=== PATIENT | female | born 1935 | race Caucasian/White ===

== ENCOUNTER → 2016-06-30 13:23 | Outpatient (CLI) | payer MEDICARE, OTHER ==
[2014-04-09 10:35] VITALS: BMI 18.0
[~2016-06-30 13:23] MED LIST: ALEVE220 MG PO; CELEXA20 MG PO; COLACE100 MG PO; COUMADIN2 MG PO; COUMADIN5 MG PO; CRESTOR20 MG PO; DULCOLAX10 MG/SUPP RC; FLAGYL500 MG PO; FLORANEX / LACT1 TAB PO; K-DUR20 MEQ PO; KAPIDEX60 MG PO; LISINOPRIL10 MG PO; LOMOTIL TABLET1 TAB PO; MEGACE ES625 MG/5 M PO; MIRALAX17 GM PO; NICODERM C1 PATCH .1 TD; NORCO 10/325 TA1 TA1 PO; NORCO 5/325 TAB1 TA1 PO; NORVASC2.5 MG PO; PEPCID20 MG PO; PHOS-NAK PAC1 PACKET PO; PRILOSEC20 MG PO; PROAIR HFA8.5 GM INH; PROTONIX40 MG PO; PROVENTIL/2.5 MG/3 M INH; REMERON15 MG PO; SENOKOT-S TABLE1 TAB PO; SPIRIVA18 MCG INH; SYMBICORT 16010.2 GM INH; VENTOLIN HFA18 GM INH; VITAMIN B-121000 MC3 PO; VITAMIN D2000 UNIT PO; VOLTAREN100 GM; VOLTAREN100 GM TP; ZOFRAN4 MG PO
[2016-06-30 14:17] LABS: BASOPHILS 0.5 % (0.0-2.0); EOSINOPHILS 1.7 % (0-7); HEMATOCRIT 45.2 % (36.0-48.0); HEMOGLOBIN 14.6 g/dL (12-16); IMMATURE GRANULOCYTES 0.3 % (0-5); LYMPHOCYTES 11.7 % (15-50); MCH 32.5 pg (26.0-34.0); MCHC 32.3 g/dL (31.0-37.0); MCV 100.7 fL (80.0-100.0); MEAN PLATELET VOLUME 10.4 fL (7.4-10.4); MONOCYTES 13.8 % (2-11); RBC 4.49 10x6/uL (4.00-5.40); RDW 14.6 % (11.5-14.5); WBC 9.8 10x3/uL (4.8-10.8)
[2016-06-30 14:18] LABS: PLATELET COUNT 183 10x3/uL (130-400)
[2016-06-30 14:29] LABS: APPEARANCE CLEAR (CLEAR); COLOR YELLOW (YELLOW)
[2016-06-30 14:30] LABS: BACTERIA FEW /hpf (NONE SEEN); BILIRUBIN NEGATIVE (NEGATIVE); EPITHELIAL CELLS 0-5 /hpf (0-5); GLUCOSE NEGATIVE (NEGATIVE); KETONE NEGATIVE (NEGATIVE); LEUKOCYTE ESTERASE TRACE (NEGATIVE); NITRITE NEGATIVE (NEGATIVE); PROTEIN NEGATIVE (NEGATIVE); UROBILINOGEN NORMAL (NORMAL); WHITE CELLS - URINE 0-5 /hpf (0-5)
== END | disposition home or self-care (01) ==
LOC: D.LAB 13:23
PROVIDERS: Family Medicine
DX: T14.8 Other injury of unspecified body region (principal); W54.0XXA Bitten by dog, initial encounter; Y93.89 Activity, other specified; Y92.89 Other specified places as the place of occurrence of the external cause; R41.0 Disorientation, unspecified

== ENCOUNTER → 2016-08-19 12:07 | Outpatient (CLI) | payer MEDICARE, OTHER ==
[2014-04-09 10:35] VITALS: BMI 18.0
[2016-08-19 12:31] LABS: BASOPHILS 1.3 % (0-2); EOSINOPHILS 2.7 % (0-7); HEMATOCRIT 43.6 % (36.0-48.0); HEMOGLOBIN 14.2 g/dL (12-16); IMMATURE GRANULOCYTES 0.2 % (0-5); LYMPHOCYTES 18.7 % (15-50); MCH 32.6 pg (26.0-34.0); MCHC 32.6 g/dL (31.0-37.0); MCV 100.2 fL (80.0-100.0); MEAN PLATELET VOLUME 10.1 fL (7.4-10.4); MONOCYTES 15.4 % (2-11); NEUTROPHILS 61.7 % (40-80); PLATELET COUNT 168 10x3/uL (130-400); RBC 4.35 10x6/uL (4.00-5.40); RDW 14.6 % (11.5-14.5); WBC 6.4 10x3/uL (4.8-10.8)
== END | disposition home or self-care (01) ==
LOC: D.RAD 08:15
PROVIDERS: Family Medicine
DX: R04.2 Hemoptysis (principal)

== ENCOUNTER 2017-03-19 00:16 | Emergency (ER) | payer MEDICARE, OTHER ==
[2014-04-09 10:35] VITALS: BMI 18.0
[2017-03-19 01:12] LABS: BASOPHILS 0.3 % (0-2); EOSINOPHILS 1.4 % (0-7); HEMATOCRIT 45.7 % (36.0-48.0); IMMATURE GRANULOCYTES 0.5 % (0-5); LYMPHOCYTES 9.9 % (15-50); MCH 33.6 pg (26.0-34.0); MCHC 32.8 g/dL (31.0-37.0); MCV 102.5 fL (80.0-100.0); MEAN PLATELET VOLUME 10.1 fL (7.4-10.4); MONOCYTES 11.5 % (2-11); NEUTROPHILS 76.4 % (40-80); PLATELET COUNT 166 10x3/uL (130-400); RBC 4.46 10x6/uL (4.00-5.40); RDW 14.8 % (11.5-14.5); WBC 12.6 10x3/uL (4.8-10.8)
[2017-03-19 01:31] LABS: ALBUMIN 4.2 g/dL (3.4-5.0); ALKALINE PHOSPHATASE 128 U/L (46-116); ALT (SGPT) 30 U/L (10-68); CALC OSMOLALITY 277 mosm/kg (275-300); CALCIUM 9.3 mg/dL (8.5-10.1); CARBON DIOXIDE 29.6 mmol/L (21.0-32.0); CHLORIDE - SERUM 100 mmol/L (98-107); CREATININE - SERUM 0.8 mg/dL (0.6-1.3); GLUCOSE 114 mg/dL (74-106); POTASSIUM - SERUM 4.2 mmol/L (3.5-5.1); PROTEIN - SERUM 8.3 g/dL (6.4-8.2); SODIUM 138 mmol/L (136-145); UREA NITROGEN 14 mg/dL (7-18); eGFR NON AFRICAN AMERICAN 73 mL/min (90-120)
[2017-03-19 01:37] LABS: CREATINE KINASE 100 UL (21-215); PRO BNP 444 pg/mL (0-450); TROPONIN-I < 0.017 ng/mL (0.000-0.060)
== END 2017-03-19 01:55 | disposition home or self-care (01) ==
LOC: D.ER 00:16
PROVIDERS: Family Medicine
DX: J44.1 Chronic obstructive pulmonary disease with (acute) exacerbation (principal); R00.0 Tachycardia, unspecified

== ENCOUNTER 2017-04-07 13:43 | Emergency (ER) | payer MEDICARE, OTHER ==
[2014-04-09 10:35] VITALS: BMI 18.0
[2017-04-07 15:43] LABS: APPEARANCE HAZY (CLEAR); COLOR DK YELLOW (YELLOW); SPECIFIC GRAVITY 1.025 (1.005-1.020)
[2017-04-07 15:44] LABS: BILIRUBIN NEGATIVE (NEGATIVE); GLUCOSE NEGATIVE (NEGATIVE); KETONE NEGATIVE (NEGATIVE); NITRITE NEGATIVE (NEGATIVE); PROTEIN NEGATIVE (NEGATIVE); UROBILINOGEN NORMAL (NORMAL)
[2017-04-07 15:46] LABS: BACTERIA MODERATE /hpf (NONE SEEN); RED CELLS - URINE 0-5 /hpf (0-5)
[2017-04-07 15:53] LABS: BASOPHILS 0.5 % (0-2); EOSINOPHILS 3.2 % (0-7); HEMATOCRIT 40.1 % (36.0-48.0); HEMOGLOBIN 12.9 g/dL (12-16); IMMATURE GRANULOCYTES 1.1 % (0-5); LYMPHOCYTES 14.4 % (15-50); MCH 32.9 pg (26.0-34.0); MCHC 32.2 g/dL (31.0-37.0); MCV 102.3 fL (80.0-100.0); MEAN PLATELET VOLUME 10.3 fL (7.4-10.4); NEUTROPHILS 71.8 % (40-80); PLATELET COUNT 195 10x3/uL (130-400); RBC 3.92 10x6/uL (4.00-5.40); RDW 14.3 % (11.5-14.5); WBC 10.3 10x3/uL (4.8-10.8)
[2017-04-07 16:07] LABS: ALBUMIN 3.4 g/dL (3.4-5.0); ANION GAP 9.4 mmol/L (8-16); BILIRUBIN - TOTAL 0.34 mg/dL (0.2-1.3); CALCIUM 8.9 mg/dL (8.5-10.1); CARBON DIOXIDE 29.6 mmol/L (21.0-32.0); CREATININE - SERUM 0.9 mg/dL (0.6-1.3); PROTEIN - SERUM 7.1 g/dL (6.4-8.2)
== END 2017-04-07 16:32 | disposition home or self-care (01) ==
LOC: D.ER 13:43
PROVIDERS: Emergency Medicine; Physician Assistant Medical
DX: M51.36 Other intervertebral disc degeneration, lumbar region (principal); S39.012A Strain of muscle, fascia and tendon of lower back, initial encounter; W19.XXXA Unspecified fall, initial encounter; Y93.89 Activity, other specified; Y92.89 Other specified places as the place of occurrence of the external cause; N39.0 Urinary tract infection, site not specified; J44.9 Chronic obstructive pulmonary disease, unspecified; F17.200 Nicotine dependence, unspecified, uncomplicated

== ENCOUNTER 2017-08-20 12:19 | Emergency (ER) | payer MEDICARE, OTHER ==
[2014-04-09 10:35] VITALS: BMI 18.0
== END 2017-08-20 14:00 | disposition home or self-care (01) ==
LOC: D.ER 12:19
DX: S70.02XA Contusion of left hip, initial encounter (principal); W19.XXXA Unspecified fall, initial encounter; Y93.89 Activity, other specified; Y92.019 Unspecified place in single-family (private) house as the place of occurrence of the external cause; J44.9 Chronic obstructive pulmonary disease, unspecified

== ENCOUNTER 2017-08-25 13:18 | Inpatient (IN) | payer MEDICARE, OTHER ==
[~2017-08-25] VITALS: Ht 160 cm; Wt 35.4 kg
--- NOTE | ~2017-08-25 | HEMODYNAMI ---
PATIENT:TISH HANSON MEDICAL RECORD: [id number] : 37 LOCATION:D.MS Sue.2230 ADMISSION DATE: 08/25/17 Generatedon:09/06/201711:49 Patient name: TISH HANSON Patient #: [id number] SSN: DO B: 1935 Date of study: 09/06/2017 Page: Of Hemodynamic Procedure Report Patient Data Patient Demographics Procedure consent was obtained First Name: TISH Gender: Female Last Name: VALENTIN : 1935 Middle Initial: ROSELIA Age: 82 year(s) Patient #: [id number] Race: Unknown Additional ID: [id number] Contact details Address: [address] [place] [address] State: [place] City: [place] Zip code: [address] Admission Admission Data Admission Date: 08/25/2017 Admission Time: 18:50 Room #: D.2230 Procedure Procedure Types Cath Procedure Peripheral Cath Diagnostic Procedure Sacralplasty Each Additional Body Procedure Description Procedure Date Procedure Date: 09/06/2017 Procedure Start Time: 10:54 Procedure Staff Name Function Fabian Interiano MD Performing Physician Jossue Martinez RT Monitor Shanita Han RT Scrub Yecenia Trevizo RN Nurse Tiburcio Cruz MD Additional personnel Procedure Data Cath Procedure Fluoroscopy Diagnostic fluoroscopy Total fluoroscopy Time: 9.6 time: 9.6 min min Diagnostic fluoroscopy Total fluoroscopy dose: 213 dose: 213 mGy mGy Procedure Medications Medication Administration Route Dosage Rocephin I.V. 1 g Ancef (1Gm/50ml NS) I.V.P.B 1 g Lidocaine 1% added to field 20 Heparin Flush Bag added to field 1 bags (1000units/500ml NS) Oxygen etCO2 Nasal cannula 4 l/min Hemodynamics Rest Pre Cath Intra NCS Post Cath Vital Signs Time Heart Resp SPO2 etCO2 NIBP (mmHg) Rhythm Pain Sedation Rate (ipm) (%) (mmHg) Status Level (bpm) 10:28:35 78 19 92 12 170/72(129) NSR 0 (11) 9(A) , No pain 10:32:53 80 26 87 0 175/82(129) NSR 0 (11) 9(A) , No pain 10:37:19 79 26 94 13.5 189/81(132) NSR 0 (11) 9(A) , No pain 10:41:21 78 21 100 6 175/74(131) NSR 0 (11) 8(A) , No pain 10:45:19 80 23 100 3.7 160/72(134) NSR 0 (11) 8(A) , No pain 10:49:47 80 25 100 11.2 188/77(133) NSR 0 (11) 8(A) , No pain 10:53:44 78 21 100 12 171/75(130) NSR 0 (11) 8(A) , No pain 10:57:44 73 20 100 17.2 172/69(122) NSR 0 (11) 8(A) , No pain 11:01:40 76 20 100 15.7 167/77(132) NSR 0 (11) 8(A) , No pain 11:05:39 73 19 100 22.5 154/69(116) NSR 0 (11) 8(A) , No pain 11:09:39 72 18 100 19.5 150/65(108) NSR 0 (11) 8(A) , No pain 11:13:45 74 18 100 14.2 125/59(100) NSR 0 (11) 8(A) , No pain 11:17:42 75 17 100 18.7 124/63(95) NSR 0 (11) 8(A) , No pain 11:21:44 75 19 100 13.5 131/56(96) NSR 0 (11) 8(A) , No pain 11:25:46 79 17 100 15.7 120/57(94) NSR 0 (11) 8(A) , No pain 11:29:45 78 19 100 10.5 122/57(91) NSR 0 (11) 8(A) , No pain 11:33:47 78 19 100 6.7 120/57(88) NSR 0 (11) 8(A) , No pain 11:37:49 80 17 100 14.2 123/58(95) NSR 0 (11) 8(A) , No pain 11:42:20 80 18 14.2 154/71(109) NSR 0 (11) 8(A) , No pain 11:46:47 81 20 7.5 185/82(140) NSR 0 (11) 8(A) , No pain Medications Time Medication Route Dose Verified Delivered Reason Notes Effec tiveness by by 10:28:55 Oxygen etCO2 4 Fabian Keene Per Nasal l/min Jaydon Trevizo RN protocol cannula 10:47:06 Rocephin I.V. 1 g Fabian Keene per drug Jaydon Trevizo RN protocol 11:03:11 Ancef (1Gm/50ml I.V.P.B 1 g Fabian Keene Per NS) Jaydon Trevizo RN protocol 11:03:23 Lidocaine 1% added 20ml Fabian Peralta Per to vial Jaydon wilkinson MD, MD 11:03:35 Heparin Flush added 1 Fabian Peralta Per Bag to bags Jaydon otero (1000units/500ml field MD MD HAYNES) Procedure Log Time Note 10:09:31 Jossue Martinez RT (R) (CV) sent for patient. Start room use. 10:09:38 Time tracking: Regular hours (M-F 7:00 - 5:00) 10:09:56 Plan of Care:Hemodynamics will remain stable., Cardiac rhythm will remain stable., Comfort level will be maintained., Respiratory function will remain adequate., Patient/ family verbilizes understanding of procedure., Procedure tolerated without complication., Recovers from procedure without complications.. 10:10:37 Patient received from Outpatients to IR Alert and oriented. Tansferred to table in Prone position. 10:10:40 Warm blankets applied, and fred hugger turned on for patient comfort. 10:10:41 Correct patient and procedure confirmed by team. 10:10:43 Signed procedure consent form obtained from patient. 10:10:46 Full Disclosure recording started 10:10:48 - 10:11:10 SEE ANESTHESIA NOTE FOR PRE PROCEDURE TIVA 10:11:11 - 10:27:52 ECG and BP/O2 sat monitors applied to patient. 10:27:53 Vital chart was started 10:28:55 Oxygen 4 l/min etCO2 Nasal cannula was administered by Yecenia Trevizo RN; Per protocol; 10:47:06 Rocephin 1 g I.V. was administered by Yecenia Trevizo RN; per drug protocol; 10:47:23 Lumbar area was prepped with chlora-prep and draped in sterile fashion 10:47:25 Alarms reviewed by R. N. 10:47:26 Sharps counted by scrub and verified by R.N. 10:47:30 Physician arrived 10:47:31 --------ALL STOP TIME OUT------ 10:47:31 Final Timeout: patient, procedure, and site verified with staff and physician. All members of the team are in agreement. 10:47:35 Lumbar site verified by team. 10:47:41 Sedation plan: TIVA Medication:Propofol 10:48:06 Use device set IR Diagnostic 10:48:08 Sterile Angiographic Pack opened to sterile field. 10:48:10 Tegaderm 4 x 4 (1626W) opened to sterile field. 10:48:11 Bag Decanter (2002S) opened to sterile field. 10:54:45 Procedure started. 10:54:59 Local anesthetic to Lumbar area with Lidocaine 1% by Fabian Interiano MD.INITIAL ACCESS ONLY 10:55:01 Avamax CEMENT BONE VERTEBROPLASTY kit opened to sterile field. 10:55:02 Avamax 13 G VERTEBROPLASTY Needle opened to sterile field. 10:55:03 Avamax 13 G VERTEBROPLASTY Needle opened to sterile field. 11:02:44 HAVING TO USE INDEPENDENT OXYGEN SATURATION MONITOR 11:03:11 Ancef (1Gm/50ml NS) 1 g I.V.P.B was administered by Yecenia Trevizo RN ; Per protocol; 11:03:23 Lidocaine 1% 20ml vial added to field was administered by Fabian irving MD; Per protocol; 11:03:35 Heparin Flush Bag (1000units/500ml NS) 1 bags added to field was administered by Fabian Interiano MD; Per protocol; 11:41:49 Procedure ended.(Physican Out) 11:43:50 Fluoroscopy time 09.60 minutes. 11:43:54 Fluoroscopy dose: 213 mGy 11:43:54 Flurop Dose total: 213 11:43:57 Sharps counted by scrub and verified by R.N. 11:43:59 Insertion/operative site no bleeding no hematoma. 11:44:10 Post-op/insertion site Right Lumbar area dressed using a 4 x 4 and Tegaderm. 11:44:17 Post Lumbar area:stable 11:44:22 Post procedure instruction explained to patient.Patient verbalizes understanding. 11:44:23 Procedure and supply charges have been captured, reviewed, submitted an d are correct. 11:48:53 SEE ANESTHESIA NOTE FOR POST PROCEDURE TIVA 11:48:56 Report given to Outpatients. 11:49:00 Patient transfered to Outpatients with Stretcher. 11:49:33 Vital chart was stopped Device Usage Item Name Manufacture Quantity Catalog Hospital Part Current Minim al Lot# / Number Charge Number Stock Stock Serial# Code Sterile Cardinal 1 [id number] 5 Angiographic Health Pack Tegaderm 4 x 4 3M 1 [id number] 5 (1626W) Bag Decanter Microtek 1 [id number] 5 (2001S) [employer] Avamax CEMENT CareFusion 1 [id number] 5 BONE VERTEBROPLASTY kit Avamax 13 G CareFusion 2 [id number] 5 VERTEBROPLASTY Needle Signature Audit [place] Stage Time Signature Unsigned Intra-Procedure 09/06/2017 Jossue 11:49:30 AM Michelle RT (R) (CV) Signatures Monitor : Jossue Signature : Michelle RT Date : Time : [facility] [address] [place] [address]
[2017-08-25 14:04] LABS: APPEARANCE CLEAR (CLEAR); BILIRUBIN NEGATIVE (NEGATIVE); COLOR YELLOW (YELLOW); GLUCOSE NEGATIVE (NEGATIVE); KETONE NEGATIVE (NEGATIVE); NITRITE NEGATIVE (NEGATIVE); PROTEIN NEGATIVE (NEGATIVE); UROBILINOGEN NORMAL (NORMAL)
[2017-08-25 14:06] LABS: BACTERIA MODERATE /hpf (NONE SEEN); HYALINE CAST 0-5 /lpf (NONE SEEN); MUCUS <1+ /lpf (NONE SEEN); RED CELLS - URINE 0-5 /hpf (0-5)
[2017-08-25 15:55] LABS: BASOPHILS 0.4 % (0-2); EOSINOPHILS 1.6 % (0-7); HEMATOCRIT 36.8 % (36.0-48.0); HEMOGLOBIN 12.1 g/dL (12-16); LYMPHOCYTES 8.5 % (15-50); MCH 32.6 pg (26.0-34.0); MCHC 32.9 g/dL (31.0-37.0); MCV 99.2 fL (80.0-100.0); MEAN PLATELET VOLUME 10.1 fL (7.4-10.4); MONOCYTES 5.9 % (2-11); NEUTROPHILS 82.6 % (40-80); PLATELET COUNT 146 10x3/uL (130-400); RBC 3.71 10x6/uL (4.00-5.40); RDW 14.2 % (11.5-14.5); WBC 18.6 10x3/uL (4.8-10.8)
[2017-08-25 16:04] LABS: INR 1.08 (0.85-1.17); PROTIME 13.6 SECONDS (11.6-15.0)
[2017-08-25 16:20] LABS: ALBUMIN 3.4 g/dL (3.4-5.0); ANION GAP 10.5 mmol/L (8-16); BILIRUBIN - TOTAL 1.38 mg/dL (0.2-1.3); CALCIUM 8.6 mg/dL (8.5-10.1); CREATININE - SERUM 0.9 mg/dL (0.6-1.3); POTASSIUM - SERUM 4.5 mmol/L (3.5-5.1); PROTEIN - SERUM 7.1 g/dL (6.4-8.2)
[2017-08-26 00:17] VITALS: BP 114/42; BMI 13.8
[2017-08-26 05:50] LABS: EOSINOPHILS 3.4 % (0-7); HEMATOCRIT 32.8 % (36.0-48.0); HEMOGLOBIN 10.6 g/dL (12-16); IMMATURE GRANULOCYTES 1.2 % (0-5); LYMPHOCYTES 8.1 % (15-50); MCH 32.2 pg (26.0-34.0); MCHC 32.3 g/dL (31.0-37.0); MCV 99.7 fL (80.0-100.0); MEAN PLATELET VOLUME 11.2 fL (7.4-10.4); MONOCYTES 10.9 % (2-11); NEUTROPHILS 75.4 % (40-80); PLATELET COUNT 150 10x3/uL (130-400); RBC 3.29 10x6/uL (4.00-5.40); RDW 14.3 % (11.5-14.5)
[2017-08-26 06:30] LABS: ALBUMIN 2.7 g/dL (3.4-5.0); ANION GAP 13.3 mmol/L (8-16); BILIRUBIN - TOTAL 0.68 mg/dL (0.2-1.3); CALCIUM 8.5 mg/dL (8.5-10.1); CARBON DIOXIDE 28.8 mmol/L (21.0-32.0); POTASSIUM - SERUM 5.1 mmol/L (3.5-5.1); PROTEIN - SERUM 5.9 g/dL (6.4-8.2)
[2017-08-26 15:13] VITALS: Ht 160 cm; Wt 35.4 kg
[2017-08-28 06:19] LABS: HEMATOCRIT 31.5 % (36.0-48.0); HEMOGLOBIN 10.1 g/dL (12-16); MCHC 32.1 g/dL (31.0-37.0); MCV 99.7 fL (80.0-100.0); MEAN PLATELET VOLUME 10.8 fL (7.4-10.4); RBC 3.16 10x6/uL (4.00-5.40); RDW 13.9 % (11.5-14.5); WBC 13.2 10x3/uL (4.8-10.8)
[2017-08-28 06:38] LABS: ANION GAP 15.7 mmol/L (8-16); CALCIUM 8.7 mg/dL (8.5-10.1); CARBON DIOXIDE 28.9 mmol/L (21.0-32.0); CREATININE - SERUM 0.9 mg/dL (0.6-1.3); POTASSIUM - SERUM 4.6 mmol/L (3.5-5.1)
[2017-08-28 12:49] LABS: BASOPHILS 0.3 % (0-2); EOSINOPHILS 1.7 % (0-7); HEMATOCRIT 30.8 % (36.0-48.0); HEMOGLOBIN 10.2 g/dL (12-16); IMMATURE GRANULOCYTES 0.9 % (0-5); LYMPHOCYTES 15.6 % (15-50); MCHC 33.1 g/dL (31.0-37.0); MCV 99.7 fL (80.0-100.0); MONOCYTES 7.6 % (2-11); NEUTROPHILS 73.9 % (40-80); PLATELET COUNT 176 10x3/uL (130-400); RBC 3.09 10x6/uL (4.00-5.40); WBC 12.7 10x3/uL (4.8-10.8)
[2017-08-29 05:55] LABS: ANION GAP 16.6 mmol/L (8-16); CALCIUM 8.8 mg/dL (8.5-10.1); CARBON DIOXIDE 26.8 mmol/L (21.0-32.0); CREATININE - SERUM 0.9 mg/dL (0.6-1.3); POTASSIUM - SERUM 4.4 mmol/L (3.5-5.1)
[2017-08-29 12:33] VITALS: BP 170/60
[2017-08-29 17:17] VITALS: BP 165/57
[2017-08-29 20:41] VITALS: BP 174/60
[2017-08-30 00:32] VITALS: BP 193/76
[2017-08-30 04:42] VITALS: BP 194/77
[2017-08-30 08:21] VITALS: BP 100/70
[2017-08-30 13:11] VITALS: BP 118/64
[2017-08-30 16:19] VITALS: BP 106/60
[2017-08-30 21:01] VITALS: BP 178/76
[2017-08-31 01:08] VITALS: BP 141/85
[2017-08-31 04:00] VITALS: BP 126/69
[2017-08-31 08:08] VITALS: BP 132/77
[2017-08-31 12:41] VITALS: BP 157/73
[2017-08-31 15:27] VITALS: BP 175/69
[2017-08-31 20:46] VITALS: BP 187/67
[2017-09-01 00:11] VITALS: BP 174/71
[2017-09-01 04:07] VITALS: BP 184/74
[2017-09-01 08:01] VITALS: BP 180/80
[2017-09-01 12:33] VITALS: BP 117/69
[2017-09-01 15:57] VITALS: BP 140/44
[2017-09-01 21:20] VITALS: BP 171/67
[2017-09-02 00:38] VITALS: BP 174/74
[2017-09-02 05:04] VITALS: BP 184/84
[2017-09-02 08:43] VITALS: BP 183/73
[2017-09-02 13:00] VITALS: BP 156/98
[2017-09-02 16:08] VITALS: BP 147/96
[2017-09-02 20:00] VITALS: BP 125/78
[2017-09-03] VITALS: BP 134/59
[2017-09-03 04:00] VITALS: BP 129/68
[2017-09-03 10:15] VITALS: BP 189/57
[2017-09-03 12:17] VITALS: BP 137/62
[2017-09-03 17:06] VITALS: BP 193/79
[2017-09-03 20:49] VITALS: BP 199/80
[2017-09-04 00:52] VITALS: BP 188/73
[2017-09-04 04:17] VITALS: BP 164/46
[2017-09-04 09:09] VITALS: BP 113/77
[2017-09-04 16:30] LABS: APPEARANCE CLEAR (CLEAR); BILIRUBIN NEGATIVE (NEGATIVE); COLOR YELLOW (YELLOW); GLUCOSE NEGATIVE (NEGATIVE); KETONE NEGATIVE (NEGATIVE); NITRITE NEGATIVE (NEGATIVE); PH 6.5 (5.0-6.0); PROTEIN TRACE mg/dL (NEGATIVE); UROBILINOGEN NORMAL (NORMAL)
[2017-09-04 16:37] LABS: BACTERIA FEW /hpf (NONE SEEN); EPITHELIAL CELLS OCC /hpf (0-5); HYALINE CAST OCC /lpf (NONE SEEN); MUCUS <1+ /lpf (NONE SEEN); RED CELLS - URINE RARE /hpf (0-5); WHITE CELLS - URINE OCC /hpf (0-5)
[2017-09-04 19:34] VITALS: BP 180/52
[2017-09-05 04:05] VITALS: BP 177/68
[2017-09-05 05:51] LABS: BASOPHILS 0.5 % (0-2); EOSINOPHILS 3.5 % (0-7); HEMATOCRIT 26.1 % (36.0-48.0); HEMOGLOBIN 8.7 g/dL (12-16); IMMATURE GRANULOCYTES 1.4 % (0-5); LYMPHOCYTES 12.2 % (15-50); MCH 32.3 pg (26.0-34.0); MCHC 33.3 g/dL (31.0-37.0); MEAN PLATELET VOLUME 10.3 fL (7.4-10.4); MONOCYTES 10.9 % (2-11); NEUTROPHILS 71.5 % (40-80); PLATELET COUNT 195 10x3/uL (130-400); RBC 2.69 10x6/uL (4.00-5.40); RDW 14.6 % (11.5-14.5); WBC 8.8 10x3/uL (4.8-10.8)
[2017-09-05 06:12] LABS: CALCIUM 7.8 mg/dL (8.5-10.1); CHLORIDE - SERUM 105 mmol/L (98-107); CREATININE - SERUM 0.6 mg/dL (0.6-1.3); SODIUM 142 mmol/L (136-145); UREA NITROGEN 7 mg/dL (7-18); eGFR NON AFRICAN AMERICAN > 90 mL/min (90-120)
[2017-09-05 06:30] LABS: CALC OSMOLALITY 278 mosm/kg (275-300); GLUCOSE 67 mg/dL (74-106)
[2017-09-05 06:52] LABS: INR 1.31 (0.85-1.17); PROTIME 15.8 SECONDS (11.6-15.0)
[2017-09-05 06:53] LABS: APTT 33.4 SECONDS (22.8-39.4)
[2017-09-05 08:25] VITALS: BP 159/81
[2017-09-05 13:22] VITALS: BP 174/56
[2017-09-05 15:47] LABS: APPEARANCE CLEAR (CLEAR); BILIRUBIN NEGATIVE (NEGATIVE); COLOR YELLOW (YELLOW); GLUCOSE NEGATIVE (NEGATIVE); KETONE MODERATE mg/dL (NEGATIVE); NITRITE NEGATIVE (NEGATIVE); PROTEIN TRACE mg/dL (NEGATIVE); UROBILINOGEN NORMAL (NORMAL)
[2017-09-05 16:55] VITALS: BP 126/57
[2017-09-05 20:00] VITALS: BP 165/70
[2017-09-06 00:18] VITALS: BP 165/77
[2017-09-06 04:10] VITALS: BP 171/73
[2017-09-06 06:12] LABS: INR 1.39 (0.85-1.17); PROTIME 16.6 SECONDS (11.6-15.0)
[2017-09-06 06:13] LABS: APTT 33.8 SECONDS (22.8-39.4)
[2017-09-06 06:16] LABS: BASOPHILS 0.8 % (0-2); EOSINOPHILS 3.3 % (0-7); HEMATOCRIT 27.3 % (36.0-48.0); HEMOGLOBIN 8.9 g/dL (12-16); IMMATURE GRANULOCYTES 1.8 % (0-5); LYMPHOCYTES 12.2 % (15-50); MCH 32.2 pg (26.0-34.0); MCHC 32.6 g/dL (31.0-37.0); MCV 98.9 fL (80.0-100.0); MEAN PLATELET VOLUME 10.7 fL (7.4-10.4); MONOCYTES 10.4 % (2-11); NEUTROPHILS 71.5 % (40-80); PLATELET COUNT 220 10x3/uL (130-400); RBC 2.76 10x6/uL (4.00-5.40); RDW 14.8 % (11.5-14.5); WBC 7.9 10x3/uL (4.8-10.8)
[2017-09-06 06:33] LABS: CALCIUM 7.7 mg/dL (8.5-10.1); CARBON DIOXIDE 25.6 mmol/L (21.0-32.0); CHLORIDE - SERUM 106 mmol/L (98-107); CREATININE - SERUM 0.7 mg/dL (0.6-1.3); POTASSIUM - SERUM 3.5 mmol/L (3.5-5.1); SODIUM 143 mmol/L (136-145); UREA NITROGEN 8 mg/dL (7-18); eGFR NON AFRICAN AMERICAN 85 mL/min (90-120)
[2017-09-06 06:34] LABS: CALC OSMOLALITY 280 mosm/kg (275-300); GLUCOSE 54 mg/dL (74-106)
[2017-09-06 15:57] VITALS: BP 197/75
[2017-09-06 18:22] VITALS: BP 192/80
[2017-09-06 20:00] VITALS: BP 188/82
[2017-09-07] VITALS (7 sets, daily range): BP systolic 116–191; BP diastolic 65–81
[2017-09-07 13:38] LABS: CALC OSMOLALITY 277 mosm/kg (275-300); CALCIUM 8.7 mg/dL (8.5-10.1); CARBON DIOXIDE 28.2 mmol/L (21.0-32.0); CHLORIDE - SERUM 106 mmol/L (98-107); CREATININE - SERUM 0.6 mg/dL (0.6-1.3); POTASSIUM - SERUM 3.7 mmol/L (3.5-5.1); SODIUM 141 mmol/L (136-145); UREA NITROGEN 8 mg/dL (7-18); eGFR NON AFRICAN AMERICAN > 90 mL/min (90-120)
[2017-09-07 13:44] LABS: GLUCOSE 84 mg/dL (74-106)
[2017-09-08 03:45] VITALS: BP 148/66
[2017-09-08 08:52] VITALS: BP 153/78
[2017-09-08 12:22] VITALS: BP 130/69
[2017-09-08 15:51] VITALS: BP 104/59
[2017-09-08 20:00] VITALS: BP 141/73
[2017-09-09 01:20] VITALS: BP 166/75
[2017-09-09 05:27] VITALS: BP 172/81
[2017-09-09 08:58] VITALS: BP 150/54
[2017-09-09 12:45] VITALS: BP 163/69
[2017-09-09 16:46] VITALS: BP 146/77
[2017-09-09 20:00] VITALS: BP 176/62
[2017-09-10] VITALS: BP 166/70
[2017-09-10 04:00] VITALS: BP 180/67
[2017-09-10 06:40] LABS: BASOPHILS 0.2 % (0-2); EOSINOPHILS 1.3 % (0-7); HEMATOCRIT 27.2 % (36.0-48.0); HEMOGLOBIN 8.9 g/dL (12-16); IMMATURE GRANULOCYTES 0.8 % (0-5); LYMPHOCYTES 6.2 % (15-50); MCH 31.9 pg (26.0-34.0); MCHC 32.7 g/dL (31.0-37.0); MCV 97.5 fL (80.0-100.0); MEAN PLATELET VOLUME 10.6 fL (7.4-10.4); MONOCYTES 10.9 % (2-11); NEUTROPHILS 80.6 % (40-80); RBC 2.79 10x6/uL (4.00-5.40); RDW 15.1 % (11.5-14.5); WBC 12.5 10x3/uL (4.8-10.8)
[2017-09-10 06:48] LABS: CALC OSMOLALITY 276 mosm/kg (275-300); CHLORIDE - SERUM 106 mmol/L (98-107); CREATININE - SERUM 0.5 mg/dL (0.6-1.3); POTASSIUM - SERUM 3.5 mmol/L (3.5-5.1); SODIUM 141 mmol/L (136-145); UREA NITROGEN 6 mg/dL (7-18); eGFR NON AFRICAN AMERICAN > 90 mL/min (90-120)
[2017-09-10 06:51] LABS: GLUCOSE 70 mg/dL (74-106)
[2017-09-10 06:58] LABS: PLATELET COUNT 275 10x3/uL (130-400)
[2017-09-10] MEDS ORDERED: NORVASC10 MG PO (07:20)
[2017-09-10] MEDS ORDERED: ULTRAM50 MG PO (07:21)
[2017-09-10] MEDS ORDERED: LISINOPRIL10 MG PO (07:21)
[2017-09-10] MEDS ORDERED: PULMICORT0.25 MG/1 UPD (07:22)
[2017-09-10] MEDS ORDERED: PROTONIX40 MG PO (07:23)
[2017-09-10] MEDS ORDERED: ATROVENT 0.02%2.5 ML UPD (07:24)
[2017-09-10] MEDS ORDERED: ATIVAN0.5 MG PO (07:40)
[2017-09-10 08:45] VITALS: BP 188/74
== END 2017-09-10 18:03 | DRG 516 ==
LOC: D.ER 13:18 → D.MS 18:50 → D.EDHOLD 18:50 → D.MS 19:06
PROVIDERS: Family Medicine; General Practice; Nurse Practitioner Family; Orthopaedic Surgery; Radiology Diagnostic Radiology; Specialist
PROC: 0QU13JZ Supplement Sacrum with Synthetic Substitute, Percutaneous Approach (ICD-10-PCS; principal; 2017-09-06 10:47)
DX: S32.19XA Other fracture of sacrum, initial encounter for closed fracture (principal); N39.0 Urinary tract infection, site not specified; W19.XXXA Unspecified fall, initial encounter; J43.9 Emphysema, unspecified; F32.9 Major depressive disorder, single episode, unspecified; M85.80 Other specified disorders of bone density and structure, unspecified site; M47.9 Spondylosis, unspecified; R54 Age-related physical debility; M81.0 Age-related osteoporosis without current pathological fracture; K59.00 Constipation, unspecified; R00.0 Tachycardia, unspecified; R41.0 Disorientation, unspecified; F03.90 Unspecified dementia, unspecified severity, without behavioral disturbance, psychotic disturbance, mood disturbance, and anxiety

== ENCOUNTER 2017-09-20 10:01 | Inpatient (IN) | payer MEDICARE, OTHER ==
[~2017-09-20] VITALS: Ht 160 cm; Wt 33.5 kg
[~2017-09-20 10:01] MED LIST changes: +ATIVAN0.5 MG PO; +ATROVENT 0.02%2.5 ML UPD; +NORVASC10 MG PO; +PULMICORT0.25 MG/1 UPD; +ULTRAM50 MG PO
[2017-09-20 11:02] LABS: BASOPHILS 0.3 % (0-2); EOSINOPHILS 0.5 % (0-7); HEMATOCRIT 30.3 % (36.0-48.0); HEMOGLOBIN 9.6 g/dL (12-16); IMMATURE GRANULOCYTES 0.6 % (0-5); MCHC 31.7 g/dL (31.0-37.0); MCV 104.1 fL (80.0-100.0); MEAN PLATELET VOLUME 9.9 fL (7.4-10.4); MONOCYTES 6.7 % (2-11); NEUTROPHILS 80.9 % (40-80); RBC 2.91 10x6/uL (4.00-5.40); RDW 16.4 % (11.5-14.5)
[2017-09-20 11:21] LABS: PLATELET COUNT 185 10x3/uL (130-400)
[2017-09-20 11:31] LABS: ALBUMIN 3.2 g/dL (3.4-5.0); ALKALINE PHOSPHATASE 144 U/L (46-116); ALT (SGPT) 18 U/L (10-68); BILIRUBIN - TOTAL 0.83 mg/dL (0.2-1.3); CALC OSMOLALITY 289 mosm/kg (275-300); CALCIUM 8.4 mg/dL (8.5-10.1); CARBON DIOXIDE 32.6 mmol/L (21.0-32.0); CHLORIDE - SERUM 108 mmol/L (98-107); CREATININE - SERUM 1.1 mg/dL (0.6-1.3); POTASSIUM - SERUM 3.5 mmol/L (3.5-5.1); PROTEIN - SERUM 6.4 g/dL (6.4-8.2); SODIUM 145 mmol/L (136-145); UREA NITROGEN 15 mg/dL (7-18); eGFR NON AFRICAN AMERICAN 50 mL/min (90-120)
[2017-09-20 11:34] LABS: GLUCOSE 106 mg/dL (74-106)
[2017-09-20 11:41] LABS: CKMB 2.9 U/L (0.0-3.6)
[2017-09-20 11:42] LABS: TROPONIN-I < 0.017 ng/mL (0.000-0.060)
[2017-09-20 13:00] VITALS: BP 150/63
[2017-09-20 14:13] LABS: APPEARANCE CLEAR (CLEAR); COLOR YELLOW (YELLOW)
[2017-09-20 14:14] LABS: BACTERIA MANY /hpf (NONE SEEN); BILIRUBIN NEGATIVE (NEGATIVE); GLUCOSE NEGATIVE (NEGATIVE); KETONE NEGATIVE (NEGATIVE); NITRITE NEGATIVE (NEGATIVE); UROBILINOGEN NORMAL (NORMAL); WHITE CELLS - URINE RARE /hpf (0-5)
[2017-09-20 14:15] LABS: EPITHELIAL CELLS RARE /hpf (0-5); PROTEIN TRACE mg/dL (NEGATIVE)
[2017-09-20 15:00] VITALS: BP 144/57
[2017-09-20 17:00] VITALS: BP 143/55
[2017-09-20 20:57] VITALS: BP 159/58; BMI 13.1
[2017-09-21 04:00] VITALS: BP 155/58
[2017-09-21 05:22] LABS: BASOPHILS 0.2 % (0-2); EOSINOPHILS 0 % (0-7); HEMATOCRIT 28.7 % (36.0-48.0); HEMOGLOBIN 9.1 g/dL (12-16); IMMATURE GRANULOCYTES 0.9 % (0-5); LYMPHOCYTES 3.4 % (15-50); MCHC 31.7 g/dL (31.0-37.0); MEAN PLATELET VOLUME 10.3 fL (7.4-10.4); MONOCYTES 1.4 % (2-11); NEUTROPHILS 94.1 % (40-80); PLATELET COUNT 201 10x3/uL (130-400); RBC 2.76 10x6/uL (4.00-5.40); RDW 16.3 % (11.5-14.5)
[2017-09-21 05:27] LABS: WBC 5.6 10x3/uL (4.8-10.8)
[2017-09-21 05:45] LABS: ALBUMIN 2.8 g/dL (3.4-5.0); ANION GAP 8.9 mmol/L (8-16); BILIRUBIN - TOTAL 0.64 mg/dL (0.2-1.3); CALCIUM 8.2 mg/dL (8.5-10.1); CARBON DIOXIDE 31.4 mmol/L (21.0-32.0); PROTEIN - SERUM 6.3 g/dL (6.4-8.2)
[2017-09-21 05:46] LABS: CREATININE - SERUM 0.8 mg/dL (0.6-1.3); POTASSIUM - SERUM 4.3 mmol/L (3.5-5.1)
[2017-09-21 08:56] VITALS: BP 165/60
[2017-09-21 12:25] VITALS: Ht 160 cm; Wt 33.5 kg
[2017-09-21 12:51] VITALS: BP 169/59
[2017-09-21 16:27] VITALS: BP 147/64
[2017-09-21 20:49] VITALS: BP 133/60
[2017-09-22] VITALS (7 sets, daily range): BP systolic 122–135; BP diastolic 37–93
[2017-09-22 05:34] LABS: BASOPHILS 0.1 % (0-2); EOSINOPHILS 0 % (0-7); HEMATOCRIT 31.1 % (36.0-48.0); HEMOGLOBIN 10.1 g/dL (12-16); IMMATURE GRANULOCYTES 0.4 % (0-5); LYMPHOCYTES 3.9 % (15-50); MCH 33.2 pg (26.0-34.0); MCHC 32.5 g/dL (31.0-37.0); MCV 102.3 fL (80.0-100.0); MEAN PLATELET VOLUME 10.7 fL (7.4-10.4); MONOCYTES 3.1 % (2-11); NEUTROPHILS 92.5 % (40-80); PLATELET COUNT 194 10x3/uL (130-400); RBC 3.04 10x6/uL (4.00-5.40); RDW 16.2 % (11.5-14.5); WBC 10.6 10x3/uL (4.8-10.8)
[2017-09-22 06:04] LABS: ALBUMIN 3.1 g/dL (3.4-5.0); ALKALINE PHOSPHATASE 132 U/L (46-116); ALT (SGPT) 17 U/L (10-68); CALC OSMOLALITY 288 mosm/kg (275-300); CALCIUM 8.5 mg/dL (8.5-10.1); CARBON DIOXIDE 30.4 mmol/L (21.0-32.0); CHLORIDE - SERUM 106 mmol/L (98-107); CREATININE - SERUM 0.7 mg/dL (0.6-1.3); GLUCOSE 142 mg/dL (74-106); POTASSIUM - SERUM 3.7 mmol/L (3.5-5.1); PROTEIN - SERUM 6.7 g/dL (6.4-8.2); SODIUM 143 mmol/L (136-145); UREA NITROGEN 17 mg/dL (7-18); eGFR NON AFRICAN AMERICAN 85 mL/min (90-120)
[2017-09-23 04:07] VITALS: BP 131/53
[2017-09-23 05:23] LABS: BASOPHILS 0.1 % (0-2); EOSINOPHILS 0 % (0-7); HEMATOCRIT 26.1 % (36.0-48.0); HEMOGLOBIN 8.6 g/dL (12-16); IMMATURE GRANULOCYTES 0.5 % (0-5); LYMPHOCYTES 2.9 % (15-50); MCH 34.1 pg (26.0-34.0); MCV 103.6 fL (80.0-100.0); MEAN PLATELET VOLUME 10.3 fL (7.4-10.4); MONOCYTES 3.1 % (2-11); NEUTROPHILS 93.4 % (40-80); PLATELET COUNT 181 10x3/uL (130-400); RBC 2.52 10x6/uL (4.00-5.40); RDW 16.2 % (11.5-14.5); WBC 9.8 10x3/uL (4.8-10.8)
[2017-09-23 05:53] LABS: ALBUMIN 2.8 g/dL (3.4-5.0); ALKALINE PHOSPHATASE 104 U/L (46-116); ALT (SGPT) 15 U/L (10-68); BILIRUBIN - TOTAL 0.42 mg/dL (0.2-1.3); CALC OSMOLALITY 291 mosm/kg (275-300); CARBON DIOXIDE 30.2 mmol/L (21.0-32.0); CHLORIDE - SERUM 109 mmol/L (98-107); CREATININE - SERUM 0.7 mg/dL (0.6-1.3); GLUCOSE 141 mg/dL (74-106); POTASSIUM - SERUM 3.8 mmol/L (3.5-5.1); PROTEIN - SERUM 5.8 g/dL (6.4-8.2); SODIUM 144 mmol/L (136-145); UREA NITROGEN 20 mg/dL (7-18); eGFR NON AFRICAN AMERICAN 85 mL/min (90-120)
[2017-09-23 08:10] VITALS: BP 135/62
[2017-09-23 12:34] VITALS: BP 144/63
[2017-09-23 16:15] VITALS: BP 136/52
[2017-09-23 17:54] VITALS: BP 134/73
[2017-09-23 20:00] VITALS: BP 116/65
[2017-09-24] VITALS: BP 129/54
[2017-09-24 04:00] VITALS: BP 131/79; BP 145/63
[2017-09-24 06:43] LABS: BASOPHILS 0 % (0-2); EOSINOPHILS 0 % (0-7); HEMATOCRIT 25.8 % (36.0-48.0); HEMOGLOBIN 8.4 g/dL (12-16); IMMATURE GRANULOCYTES 0.9 % (0-5); LYMPHOCYTES 4.7 % (15-50); MCH 32.8 pg (26.0-34.0); MCHC 32.6 g/dL (31.0-37.0); MEAN PLATELET VOLUME 10.5 fL (7.4-10.4); MONOCYTES 4.5 % (2-11); NEUTROPHILS 89.9 % (40-80); PLATELET COUNT 162 10x3/uL (130-400); RBC 2.56 10x6/uL (4.00-5.40); RDW 15.9 % (11.5-14.5)
[2017-09-24 06:44] LABS: MCV 100.8 fL (80.0-100.0); WBC 6.7 10x3/uL (4.8-10.8)
[2017-09-24 07:08] LABS: ALBUMIN 2.6 g/dL (3.4-5.0); ALKALINE PHOSPHATASE 96 U/L (46-116); BILIRUBIN - TOTAL 0.43 mg/dL (0.2-1.3); CALC OSMOLALITY 296 mosm/kg (275-300); CALCIUM 7.8 mg/dL (8.5-10.1); CARBON DIOXIDE 29.5 mmol/L (21.0-32.0); CHLORIDE - SERUM 110 mmol/L (98-107); CREATININE - SERUM 0.7 mg/dL (0.6-1.3); GLUCOSE 130 mg/dL (74-106); PROTEIN - SERUM 5.5 g/dL (6.4-8.2); SODIUM 147 mmol/L (136-145); UREA NITROGEN 21 mg/dL (7-18); eGFR NON AFRICAN AMERICAN 85 mL/min (90-120)
[2017-09-24 07:09] LABS: ALT (SGPT) 24 U/L (10-68)
[2017-09-24 08:49] VITALS: BP 139/64
[2017-09-24 12:21] VITALS: BP 137/54
[2017-09-24 17:09] VITALS: BP 143/54
[2017-09-25 05:17] VITALS: BP 141/62
[2017-09-25 07:56] LABS: BASOPHILS 0.1 % (0-2); EOSINOPHILS 0 % (0-7); HEMATOCRIT 30.6 % (36.0-48.0); IMMATURE GRANULOCYTES 1.4 % (0-5); LYMPHOCYTES 3.7 % (15-50); MCH 33.4 pg (26.0-34.0); MCHC 32.7 g/dL (31.0-37.0); MCV 102.3 fL (80.0-100.0); MEAN PLATELET VOLUME 10.7 fL (7.4-10.4); MONOCYTES 5.3 % (2-11); NEUTROPHILS 89.5 % (40-80); PLATELET COUNT 179 10x3/uL (130-400); RBC 2.99 10x6/uL (4.00-5.40); RDW 15.6 % (11.5-14.5); WBC 7.7 10x3/uL (4.8-10.8)
[2017-09-25 08:02] LABS: ALKALINE PHOSPHATASE 106 U/L (46-116); ALT (SGPT) 23 U/L (10-68); BILIRUBIN - TOTAL 0.57 mg/dL (0.2-1.3); CALC OSMOLALITY 287 mosm/kg (275-300); CARBON DIOXIDE 29.5 mmol/L (21.0-32.0); CHLORIDE - SERUM 109 mmol/L (98-107); CREATININE - SERUM 0.7 mg/dL (0.6-1.3); GLUCOSE 122 mg/dL (74-106); POTASSIUM - SERUM 4.4 mmol/L (3.5-5.1); PROTEIN - SERUM 6.1 g/dL (6.4-8.2); SODIUM 143 mmol/L (136-145); UREA NITROGEN 19 mg/dL (7-18); eGFR NON AFRICAN AMERICAN 85 mL/min (90-120)
[2017-09-25 09:17] VITALS: BP 147/59
[2017-09-25 12:38] VITALS: BP 153/68
[2017-09-25 16:58] VITALS: BP 112/67
[2017-09-25 21:14] VITALS: BP 150/59
[2017-09-26 05:28] VITALS: BP 140/62
[2017-09-26 05:30] LABS: BASOPHILS 0.1 % (0-2); EOSINOPHILS 0 % (0-7); HEMATOCRIT 33.4 % (36.0-48.0); HEMOGLOBIN 10.7 g/dL (12-16); IMMATURE GRANULOCYTES 1.5 % (0-5); MCH 32.2 pg (26.0-34.0); MCV 100.6 fL (80.0-100.0); MEAN PLATELET VOLUME 10.9 fL (7.4-10.4); MONOCYTES 2.4 % (2-11); PLATELET COUNT 173 10x3/uL (130-400); RBC 3.32 10x6/uL (4.00-5.40); RDW 15.2 % (11.5-14.5)
[2017-09-26 06:18] LABS: ANION GAP 12.9 mmol/L (8-16); BILIRUBIN - TOTAL 0.66 mg/dL (0.2-1.3); CALCIUM 8.3 mg/dL (8.5-10.1); CREATININE - SERUM 0.8 mg/dL (0.6-1.3); POTASSIUM - SERUM 4.9 mmol/L (3.5-5.1); PROTEIN - SERUM 6.2 g/dL (6.4-8.2)
[2017-09-26 09:53] VITALS: BP 140/67
[2017-09-26 12:40] VITALS: BP 138/65
[2017-09-26 16:45] VITALS: BP 139/68
[2017-09-26 21:51] VITALS: BP 152/58
[2017-09-27 00:22] VITALS: BP 134/54
[2017-09-27 04:00] VITALS: BP 136/66
[2017-09-27 05:18] LABS: BASOPHILS 0.1 % (0-2); EOSINOPHILS 0 % (0-7); HEMATOCRIT 30.9 % (36.0-48.0); HEMOGLOBIN 10.3 g/dL (12-16); IMMATURE GRANULOCYTES 1.4 % (0-5); LYMPHOCYTES 4.3 % (15-50); MCH 32.4 pg (26.0-34.0); MCHC 33.3 g/dL (31.0-37.0); MEAN PLATELET VOLUME 10.8 fL (7.4-10.4); MONOCYTES 2.1 % (2-11); NEUTROPHILS 92.1 % (40-80); PLATELET COUNT 181 10x3/uL (130-400); RBC 3.18 10x6/uL (4.00-5.40); WBC 11.5 10x3/uL (4.8-10.8)
[2017-09-27 05:24] LABS: MCV 97.2 fL (80.0-100.0)
[2017-09-27 05:59] LABS: ALBUMIN 2.9 g/dL (3.4-5.0); ALKALINE PHOSPHATASE 96 U/L (46-116); ALT (SGPT) 19 U/L (10-68); BILIRUBIN - TOTAL 0.68 mg/dL (0.2-1.3); CALC OSMOLALITY 276 mosm/kg (275-300); CHLORIDE - SERUM 104 mmol/L (98-107); CREATININE - SERUM 0.6 mg/dL (0.6-1.3); GLUCOSE 118 mg/dL (74-106); POTASSIUM - SERUM 4.6 mmol/L (3.5-5.1); PROTEIN - SERUM 5.8 g/dL (6.4-8.2); SODIUM 137 mmol/L (136-145); UREA NITROGEN 19 mg/dL (7-18); eGFR NON AFRICAN AMERICAN > 90 mL/min (90-120)
[2017-09-27 08:37] VITALS: BP 142/61
[2017-09-27 12:45] VITALS: BP 140/56
[2017-09-27 16:43] VITALS: BP 143/53
[2017-09-27 19:51] VITALS: BP 140/58
[2017-09-28 00:10] VITALS: BP 138/58
[2017-09-28 04:45] VITALS: BP 137/64
[2017-09-28 06:08] LABS: BASOPHILS 0.1 % (0-2); EOSINOPHILS 0 % (0-7); HEMATOCRIT 31.4 % (36.0-48.0); HEMOGLOBIN 10.3 g/dL (12-16); IMMATURE GRANULOCYTES 0.9 % (0-5); LYMPHOCYTES 2.5 % (15-50); MCH 32.2 pg (26.0-34.0); MCHC 32.8 g/dL (31.0-37.0); MCV 98.1 fL (80.0-100.0); MEAN PLATELET VOLUME 10.5 fL (7.4-10.4); MONOCYTES 4.7 % (2-11); NEUTROPHILS 91.8 % (40-80); PLATELET COUNT 168 10x3/uL (130-400); WBC 10.9 10x3/uL (4.8-10.8)
[2017-09-28 06:35] LABS: ALKALINE PHOSPHATASE 95 U/L (46-116); ALT (SGPT) 20 U/L (10-68); CALC OSMOLALITY 275 mosm/kg (275-300); CALCIUM 8.1 mg/dL (8.5-10.1); CARBON DIOXIDE 25.8 mmol/L (21.0-32.0); CHLORIDE - SERUM 102 mmol/L (98-107); CREATININE - SERUM 0.6 mg/dL (0.6-1.3); GLUCOSE 123 mg/dL (74-106); POTASSIUM - SERUM 4.9 mmol/L (3.5-5.1); PROTEIN - SERUM 5.9 g/dL (6.4-8.2); SODIUM 136 mmol/L (136-145); UREA NITROGEN 22 mg/dL (7-18); eGFR NON AFRICAN AMERICAN > 90 mL/min (90-120)
[2017-09-28 08:17] VITALS: BP 138/75
== END 2017-09-28 12:54 | disposition home health service (06) | DRG 640 ==
LOC: D.ER 10:01 → D.EDHOLD 16:44 → D.MS 16:44
PROVIDERS: Family Medicine
DX: R62.7 Adult failure to thrive (principal); E43 Unspecified severe protein-calorie malnutrition; R53.2 Functional quadriplegia; Z68.1 Body mass index [BMI] 19.9 or less, adult; F03.90 Unspecified dementia, unspecified severity, without behavioral disturbance, psychotic disturbance, mood disturbance, and anxiety; R40.2352 Coma scale, best motor response, localizes pain, at arrival to emergency department; R06.00 Dyspnea, unspecified; R40.2142 Coma scale, eyes open, spontaneous, at arrival to emergency department; R40.2242 Coma scale, best verbal response, confused conversation, at arrival to emergency department; Z66 Do not resuscitate; R13.10 Dysphagia, unspecified; Z51.5 Encounter for palliative care; I95.9 Hypotension, unspecified; S32.10XD Unspecified fracture of sacrum, subsequent encounter for fracture with routine healing; X58.XXXD Exposure to other specified factors, subsequent encounter; M81.0 Age-related osteoporosis without current pathological fracture; M19.90 Unspecified osteoarthritis, unspecified site